=== PATIENT | female | born 1995 | race Caucasian/White ===

== ENCOUNTER 2025-06-26 14:12 | Emergency (ER) | payer SELFPAY ==
[2025-06-26 15:20] LABS: Absolute Lymphocytes (CBC) 1.3 K/uL (0.7-4.9); Hematocrit 38.4 % (36.0-45.0); Hemoglobin 12.8 g/dL (12.0-15.0); MCH 28.5 pg (27.0-35.0); MCHC 33.4 g/dL (32.0-36.0); MCV 85.4 fL (80-100); MPV 8.6 fL (7.6-11.3); Nucleated RBC Absolute Count 0.0 (0-0); Nucleated Red Blood Cells % 0.0 % (0-0); RBC Red Blood Cell Count 4.50 M/uL (3.86-4.86); White Blood Count 6.80 thou/uL (4.3-10.9)
[2025-06-26 15:22] LABS: D-Dimer 0.37 FEUug/mL (0-0.500); PT Prothrombin Time 12.3 SECONDS (10-13.0); Protime INR 1.09
[2025-06-26 15:22] LABS: Sqamous Epithelial <5 /HPF (None Seen); Urine Culture Reflex Order NOT NEEDED; Urine Microscopic Reflex YN ORDER UMIC; Urine WBC Clump Rare /HPF (None Seen); Urine Yeast (Budding) Trace /HPF (None Seen)
--- NOTE | 2025-06-26 15:22 | RAD REPORT ---
Procedure: Chest Single View HISTORY: Chest pain COMPARISON: none FINDINGS: The lungs appear clear of acute infiltrate. No significant pleural effusion noted. The heart is normal size. IMPRESSION: No acute abnormality is displayed.
[2025-06-26 15:34] LABS: ALT/SGPT 25 U/L (13-56); AST/SGOT 15 U/L (15-37); Albumin 3.7 g/dL (3.4-5.0); Albumin/Globulin Ratio 0.9 (1.1-1.8); Alkaline Phosphatase 83 U/L (45-117); Anion Gap 7.6 mEq/L (5.0-15.0); BUN Blood Urea Nitrogen 8 mg/dL (7-18); Globulin 3.9 g/dL (2.3-3.5); Glucose Level 102 mg/dL (74-106); Magnesium 2.2 mg/dL (1.6-2.4); NT PRO-BNP 50 pg/mL (<125); Potassium 3.6 mEq/L (3.5-5.1); Troponin High Sensitivity 3.5 pg/mL (<58.9)
[2025-06-26] MEDS ORDERED: KETOROLAC 30 MG/ML INJ ONE (15:41)
[2025-06-26 15:46] LABS: METHAMPHETAM NEGATIVE (NEGATIVE); THC Cannibis NEGATIVE (NEGATIVE)
[2025-06-26 15:46] LABS: Bilirubin Indirect, Calculated 0.1 mg/dL (0.2-0.8)
--- NOTE | 2025-06-26 15:53 | EDPHYS ---
Physician Documentation [facility] Name: Rey Neves Age: 29 yrs Sex: Female : 1995 Arrival Date: 06/26/2025 Time: 14:12 Bed 5 Private MD: ED Physician Alfonso Mark HPI: 06/26 14:30 This 29 yrs old Female presents to ER via Ambulatory with complaints of Chest Pain, cp Shortness Of Breath. 14:30 The patient or guardian reports chest pain that is located primarily in the anterior cp chest wall, left. 14:30 The pain does not radiate. Associated signs and symptoms: Pertinent positives: cp shortness of breath. 14:30 The chest pain is described as a pressure. Duration: The patient or guardian reports a cp single episode, that is still ongoing, and worsening. Modifying factors: the symptoms are aggravated by lying down at night. Severity of pain: in the emergency department the pain is unchanged despite home interventions. 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 - Infectious Disease History:: Denies. - Social history:: Smoking status: Reported history of juuling and/or vaping. ROS: 14:30 Constitutional: Negative for body aches, chills, fever, poor PO intake, cp 14:30 Cardiovascular: Positive for chest pain, Negative for edema, palpitations, cp 14:30 Eyes: Negative for injury, pain, redness, and discharge, cp 14:30 Respiratory: Positive for shortness of breath, Negative for cough, wheezing, 14:30 Abdomen/GI: Negative for abdominal pain, vomiting, diarrhea, constipation, 14:30 Back: Negative for pain at rest, pain with movement, 14:30 Neuro: Negative for altered mental status, dizziness, headache, weakness, 14:30 All other systems are negative, Exam: 14:30 ECG was reviewed by the Attending Physician. cp 14:35 Constitutional: The patient appears in no acute distress, alert, awake, cp non-diaphoretic, well developed, well nourished, obese, 14:35 Head/Face: Normocephalic, atraumatic. cp 14:35 Eyes: Periorbital structures: appear normal, Conjunctiva: normal, no exudate, no cp injection, Sclera: no appreciated abnormality, Lids and lashes: appear normal, bilaterally, 14:35 ENT: External ear(s): are unremarkable, Nose: is normal, Mouth: Lips: moist, Oral mucosa: moist, Posterior pharynx: Airway: no evidence of obstruction, patent, 14:35 Neck: ROM/movement: is normal, is supple, without pain, no range of motions limitations, 14:35 Chest/axilla: Inspection: normal, 14:35 Cardiovascular: Rate: normal, Rhythm: regular, Edema: is not appreciated, JVD: is not appreciated, 14:35 Respiratory: the patient does not display signs of respiratory distress, Respirations: normal, no use of accessory muscles, no retractions, labored breathing, is not present, Breath sounds: are clear throughout, no decreased breath sounds, no stridor, no wheezing, 14:35 Abdomen/GI: Inspection: abdomen appears normal, Bowel sounds: active, all quadrants, Palpation: abdomen is soft and non-tender, in all quadrants, 14:35 Back: pain, is absent, ROM is normal, cp 14:35 Neuro: Orientation: to person, place \T\ time. Mentation: is normal, Cerebellar function: cp is grossly normal, Motor: moves all fours, strength is normal, Sensation: is normal, Vital Signs: 14:23 BP 136 / 87; Pulse 81; Resp 17; Temp 98.8; Pulse Ox 95% ; Weight 104.33 kg; Height 5 ap3 ft. 5 in. ; Pain 4/10; 14:30 BP 108 / 64; Pulse 69; Resp 18; Pulse Ox 100% on R/A; hb 14:23 Body Mass Index 38.27 (104.33 kg, 165.1 cm) ap3 14:23 Pain Scale: Adult ap3 MDM: 15:00 Differential diagnosis: abnormal EKG, acute myocardial infarction, acute pericarditis, cp anxiety, chest wall pain, pleurisy, pneumonia, pneumothorax, pulmonary embolus. 15:53 Medical Screening Exam initiated cp 15:53 Data reviewed: vital signs, nurses notes, lab test result(s), EKG, radiologic studies, cp plain films, and as a result, I will discharge patient. 15:53 I considered the following discharge prescriptions or medication management in the emergency department Medications were administered in the Emergency Department. See 14:18 Order name: UA Rfx Melvin Cult if indicated; Complete Time: 15:27 06/26 14:18 Order name: Test, Urine; Complete Time: 15:27 06/26 14:31 Order name: Basic Metabolic Panel; Complete Time: 15:47 06/26 14:31 Order name: CBC with Diff; Complete Time: 15:27 06/26 14:31 Order name: D-Dimer; Complete Time: 15:27 06/26 14:31 Order name: LFT's; Complete Time: 15:47 06/26 15:48 Interpretation: Normal except: IBILI, CALC 0.1; GLOB 3.9; A/G 0.9. 06/26 14:31 Order name: Magnesium; Complete Time: 15:47 06/26 14:31 Order name: NT PRO-BNP; Complete Time: 15:47 06/26 14:31 Order name: PT-INR; Complete Time: 15:27 06/26 14:31 Order name: Troponin HS; Complete Time: 15:47 06/26 14:31 Order name: UDS; Complete Time: 15:47 cp 06/26 14:31 Order name: XRAY Chest (1 view); Complete Time: 15:27 06/26 14:17 Order name: EKG; Complete Time: 14:18 06/26 14:17 Order name: EKG - Nurse/Tech; Complete Time: 14:29 cp 06/26 14:31 Order name: Cardiac monitoring; Complete Time: 15:39 cp 06/26 14:31 Order name: IV Saline Lock; Complete Time: 14:54 06/26 14:31 Order name: Labs collected and sent; Complete Time: 14:54 06/26 14:31 Order name: O2 Per Protocol; Complete Time: 15:39 06/26 14:31 Order name: O2 Sat Monitoring; Complete Time: 15:39 cp EC:30 Rate is 73 beats/min. Rhythm is regular. PA interval is normal. QRS interval is normal. cp QT interval is normal. T waves are Inverted in lead aVR. Interpreted by me. Reviewed by me. Administered Medications: 15:44 Drug: Ketorolac IVP 15 mg IVP once Route: IVP; Site: right antecubital; hb 16:04 Follow up: Response: No adverse reaction; Pain is decreased ap3 Disposition Summary: 06/26/25 15:53 Discharge Ordered Notes: Location: Home cp Problem: new cp Symptoms: have improved cp Condition: Stable cp Diagnosis - Chest pain, unspecified cp Followup: cp - With: Jason Nunez MD - When: 5 - 6 days - Reason: Recheck today's complaints Discharge Instructions: - Discharge Summary Sheet cp - Nonspecific Chest Pain, Adult cp - Supporting Someone With Anxiety cp - Managing Anxiety, Adult cp Forms: - Medication Reconciliation Form cp - Antibiotic Education cp - Prescription Opioid Use cp - Patient Portal Instructions cp - Leadership Thank You Letter cp Prescriptions: - Ibuprofen 800 mg Oral Tablet - take 1 tablet ORAL route every 8 hours As needed take with food; 30 tablet; cp Refills: 0, Product Selection Permitted Signatures: Dispatcher [employer] EDMS Mickey Quinones PA PA cp Cheli Kauffman RN RN Salima Heath RN RN ap3 Corrections: (The following items were deleted from the chart) 14:18 14:18 UA Rfx Melvin Cult if indicated+U.LAB.BRZ ordered. EDMS EDMS 14:18 14:18 Test, Urine+UC.LAB.BRZ ordered. EDMS EDMS 14:27 14:27 PMHx: None; ap3 ap3 14:31 14:31 BASIC METABOLIC PANEL+C.LAB.BRZ ordered. EDMS EDMS 14:31 14:31 CBC+H.LAB.BRZ ordered. EDMS EDMS 14:31 14:31 D-DIMER+COAG.LAB.BRZ ordered. EDMS EDMS 14:31 14:31 HEPATIC FUNCTION+C.LAB.BRZ ordered. EDMS EDMS 14:31 14:31 MAGNESIUM+C.LAB.BRZ ordered. EDMS EDMS 14:31 14:31 PROBNP+C.LAB.BRZ ordered. EDMS EDMS 14:31 14:31 PROTIME (+INR)+COAG.LAB.BRZ ordered. EDMS EDMS 14:31 14:31 Troponin High Sensitivity+C.LAB.BRZ ordered. EDMS EDMS 14: URINE DRUG SCREEN+UC.LAB.BRZ ordered. EDMS EDMS 14: Chest Single View+RAD.RAD.BRZ ordered. EDMS EDMS
--- NOTE | 2025-06-26 15:53 | ER ---
Nurse's Notes [facility] Name: Rey Neves Age: 29 yrs Sex: Female : 1995 Arrival Date: 06/26/2025 Time: 14:12 Bed 5 Private MD: Diagnosis: Chest pain, unspecified Presentation: 06/26 14:23 Chief complaint: Patient states: she has been having chest pressure and shortness of ap3 breath for appox 2 weeks when she lays down at night, but then it carried over into the day for the first time today. patient is crying during triage. patient states pain is a 4/10 on the pain scale. Mother at bedside reports patient was born with an enlarged heart. Coronavirus screen: At this time, the client does not indicate any symptoms associated with coronavirus-19. Ebola Screen: No symptoms or risks identified at this time. Initial Sepsis Screen: Does the patient meet any 2 criteria? No. Patient's initial sepsis screen is negative. Does the patient have a suspected source of infection? No. Patient's initial sepsis screen is negative. Risk Assessment: Do you want to hurt yourself or someone else? Patient reports no desire to harm self or others. Onset of symptoms was June 12, 2025. 14:23 Method Of Arrival: Ambulatory ap3 14:23 Acuity: MAYANK 2 ap3 Triage Assessment: 14:26 General: Appears well groomed, Behavior is cooperative. Pain: Complains of pain in ap3 chest Pain currently is 4 out of 10 on a pain scale. Neuro: Level of Consciousness is awake, alert, obeys commands, Oriented to person, place, time, situation, Appropriate for age Gait is steady, Speech is normal. Cardiovascular: Reports chest pain, shortness of breath. Respiratory: Reports shortness of breath when laying down Airway is patent Respiratory effort is even, unlabored, Respiratory pattern is regular, symmetrical. 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 - Infectious Disease History:: Denies. - Social history:: Smoking status: Reported history of juuling and/or vaping. Screenin:27 [facility] ED Fall Risk Assessment (Adult) History of falling in the last 3 months, ap3 including since admission No falls in past 3 months (0 pts) Confusion or Disorientation No (0 pts) Intoxicated or Sedated No (0 pts) Impaired Gait No (0 pts) Mobility Assist Device Used No (0 pt) Altered Elimination No (0 pt) Score/Fall Risk Level 0 - 2 = Low Risk Oriented to surroundings, Maintained a safe environment, Educated pt \T\ family on fall prevention, incl call for assistance when getting out of bed, Assessed \T\ reinforced patient's understanding of fall precautions, Hourly rounding (assess needs \T\ fall precautionary measures) done, Used ambulatory aids as needed (educated on \T\ assisted with). Abuse screen: Denies threats or abuse. Nutritional screening: No deficits noted. Tuberculosis screening: No symptoms or risk factors identified. Assessment: 14:30 General: Appears in no apparent distress. comfortable, well groomed, well developed, hb Behavior is calm, cooperative, appropriate for age. Pain: Complains of pain in chest Pain currently is 1 out of 10 on a pain scale. Neuro: Level of Consciousness is awake, alert, obeys commands, Oriented to person, place, time, situation, Appropriate for age. Cardiovascular: Patient's skin is warm and dry. Respiratory: Airway is patent Respiratory effort is even, unlabored, Respiratory pattern is regular, symmetrical. GI: No signs and/or symptoms were reported involving the gastrointestinal system. : No signs and/or symptoms were reported regarding the genitourinary system. EENT: No signs and/or symptoms were reported regarding the EENT system. Derm: No signs and/or symptoms reported regarding the dermatologic system. Musculoskeletal: No signs and/or symptoms reported regarding the musculoskeletal system. Vital Signs: 14:23 BP 136 / 87; Pulse 81; Resp 17; Temp 98.8; Pulse Ox 95% ; Weight 104.33 kg; Height 5 ap3 ft. 5 in. ; Pain 4/10; 14:30 BP 108 / 64; Pulse 69; Resp 18; Pulse Ox 100% on R/A; hb 14:23 Body Mass Index 38.27 (104.33 kg, 165.1 cm) ap3 14:23 Pain Scale: Adult ap3 ED Course: 14:15 Patient arrived in ED. im 14:16 Mickey Quinones PA is PHCP. cp 14:17 Alfonso Mark MD is Attending Physician. cp 14:25 Triage completed. ap3 14:28 Arm band placed on right wrist. ap3 14:28 Patient maintains SpO2 saturation greater than 95% on room air. ap3 14:30 Patient has correct armband on for positive identification. Provided Education on: hb labs, tests, call light use . 14:30 No provider procedures requiring assistance completed. hb 14:54 Inserted saline lock: 20 gauge in right antecubital area, using aseptic technique. ts3 Blood collected. Flushed with 10 mL NS. 14:54 Initial lab(s) drawn, by quality control lab technician, sent to lab. ts3 14:54 Urine collected: clean catch specimen, sent to lab. ts3 15:02 XRAY Chest (1 view) In Process Unspecified. EDMS 15:52 Jason Nunez MD is Referral Physician. cp 16:04 IV discontinued, intact, bleeding controlled, No redness/swelling at site. Pressure ap3 dressing applied. Administered Medications: 15:44 Drug: Ketorolac IVP 15 mg IVP once Route: IVP; Site: right antecubital; hb 16:04 Follow up: Response: No adverse reaction; Pain is decreased ap3 Medication: 14:30 VIS not applicable for this client. hb Outcome: 15:53 Discharge ordered by . cp 16:04 Discharged to home ambulatory, with family, ap3 16:04 Condition: good 16:04 Discharge instructions given to patient, family, Instructed on discharge instructions, follow up and referral plans. medication usage, Demonstrated understanding of instructions, follow-up care, medications, Prescriptions given X 1, 16:05 Patient left the ED. ap3 Signatures: Dispatcher [employer] EDNH Mickey Quinones PA PA cp Cheli Kauffman RN RN Salima Heath RN RN ap3 Patito Wilcox Zoya Conte ts3 Corrections: (The following items were deleted from the chart) 14:27 14:27 PMHx: None; ap3 ap3
[2025-06-26 22:58] VITALS: TEMP 98.8
[2025-06-26 22:59] VITALS: BP 108/64; O2SAT 100
== END 2025-06-26 16:05 | disposition home or self-care (01) ==
LOC: ER 14:12
DX: R07.89 Other chest pain (principal)
CPT/HCPCS: 36415; 71045; 80048; 80076; 80307; 81001; 81025; 83735; 83880; 84484; 85025; 85379; 85610; 93005; 96374; 99284